=== PATIENT | male | born 1995 | race Two or more races ===

== ENCOUNTER 2022-05-11 02:49 | Emergency (ER) | payer SELFPAY ==
[~2022-05-11] VITALS: Ht 188 cm; Wt 131.8 kg
[2022-05-11] MEDS ORDERED: IBUPROFEN 600 MG TABLET PO ONE (03:15)
[2022-05-11 03:22] LABS: BASOPHILS % (AUTO) 0.2 % (0.0-2.0); EOSINOPHILS % (AUTO) 2.7 % (1.0-6.0); HEMATOCRIT 41.6 % (41-53); HEMOGLOBIN 14.5 g/dL (13.5-17.5); LYMPHOCYTES # (AUTO) 3.2 K/uL (1.0-4.8); LYMPHOCYTES % (AUTO) 35.1 % (22.0-44.0); MEAN CORPUSCULAR HGB CONC 34.9 G/dL (31.0-37.0); MEAN CORPUSCULAR VOLUME 86 fL (80-100); MONOCYTES # (AUTO) 0.7 K/uL (0.1-1.0); MONOCYTES % (AUTO) 7.2 % (2.0-9.0); NEUTROPHILS % (AUTO) 54.8 % (40.0-70.0); PLATELET COUNT (AUTO) 312 K/uL (150-450); RED BLOOD CELL COUNT(AUTO) 4.84 MIL/uL (4.50-5.90); RED CELL DISTRIBUTION WIDTH 13.4 % (11.5-14.5)
[2022-05-11 03:32] LABS: ANION GAP 9 mmol/L (8-16); CARBON DIOXIDE 28 mmol/L (22-29); CHLORIDE 103 mmol/L (98-107); CREATININE 0.81 mg/dL (0.60-1.30); GLUCOSE,RANDOM 104 mg/dL (70-110); POTASSIUM 4.2 mmol/L (3.5-5.1); SODIUM SERUM 140 mmol/L (136-145); UREA NITROGEN, BLOOD 13 mg/dL (7-18)
[2022-05-11 03:36] LABS: CALCIUM, TOTAL 9.4 mg/dL (8.8-10.5)
[2022-05-11 03:39] LABS: GLOMERULAR FILTR. RATE CALC > 60 mL/min (>60)
[2022-05-11 04:15] VITALS: BP 137/83
== END 2022-05-11 04:52 | disposition home or self-care (01) ==
LOC: EMS 02:51
DX: R07.89 Other chest pain (principal)
CPT/HCPCS: 71045; 80048; 84484; 85025; 93005; 99285; 36415-L1; 36415-TC

== ENCOUNTER 2023-01-18 09:55 | Emergency (ER) | payer MEDICAID ==
[~2023-01-18] VITALS: Ht 182.9 cm; Wt 122.7 kg
[2023-01-18] MEDS ORDERED: IBUP-1506 PO (10:08)
[2023-01-18] MEDS ORDERED: MethylPREDNISolone SOD SUCC 125 MG/2 ML VIAL IM ONE (12:15)
[2023-01-18] MEDS ORDERED: COLC0.6T68 PO (12:39)
[2023-01-18 12:51] VITALS: BP 137/84
== END 2023-01-18 12:51 | disposition home or self-care (01) ==
LOC: EMS 09:55
DX: M10.9 Gout, unspecified (principal)
CPT/HCPCS: 99283; 96372; J2930

== ENCOUNTER 2023-03-12 06:40 | Emergency (ER) | payer MEDICAID ==
[~2023-03-12] VITALS: Ht 185.4 cm; Wt 127.3 kg
[~2023-03-12 06:40] MED LIST: COLC0.6T68 PO; IBUP-1506 PO
[2023-03-12] MEDS ORDERED: KETOROLAC TROMETHAMINE 60 MG/2 ML VIAL IM ONE (07:15)
[2023-03-12] MEDS ORDERED: DEXAMETHASONE SOD PHOS 4 MG/ML VIAL IM ONE (07:15)
[2023-03-12] MEDS ORDERED: COLCHICINE 0.6 MG TABLET PO ONE (07:15)
[2023-03-12] MEDS ORDERED: IBUP-1554 PO (07:28)
[2023-03-12] MEDS ORDERED: COLC0.6T73 PO (07:28)
[2023-03-12] MEDS ORDERED: CEPH-558 PO (07:28)
[2023-03-12 07:45] VITALS: BP 145/87
== END 2023-03-12 07:55 | disposition home or self-care (01) ==
LOC: EMS 06:42
DX: M10.9 Gout, unspecified (principal)
CPT/HCPCS: 99284; 96372; J1100; J1885

== ENCOUNTER 2023-05-10 22:02 | Emergency (ER) | payer MEDICAID ==
[~2023-05-10] VITALS: Ht 182.9 cm; Wt 122.7 kg
[~2023-05-10 22:02] MED LIST changes: +CEPH-558 PO; -COLC0.6T68 PO; +COLC0.6T73 PO; -IBUP-1506 PO; +IBUP-1554 PO
[2023-05-10 22:15] VITALS: BP 152/94; PULSE 81; RESP 16; TEMP 98.1
[2023-05-11] MEDS ORDERED: COLCHICINE 0.6 MG TABLET PO ONE (00:30)
[2023-05-11] MEDS ORDERED: IBUPROFEN 600 MG TABLET PO ONE (00:30)
[2023-05-11] MEDS ORDERED: DEXAMETHASONE SOD PHOS 4 MG/ML 5 ML VIAL IM ONE (00:30)
[2023-05-11] MEDS ORDERED: IBUP-1554 PO (02:23)
== END 2023-05-11 02:42 | disposition home or self-care (01) ==
LOC: EMS 22:02
DX: M10.071 Idiopathic gout, right ankle and foot (principal); M19.90 Unspecified osteoarthritis, unspecified site
CPT/HCPCS: 99283; 96372; J1100

== ENCOUNTER 2024-04-19 23:43 | Emergency (ER) | payer SELFPAY ==
[~2024-04-19] VITALS: Ht 182.9 cm; Wt 131.4 kg
[~2024-04-19 23:43] MED LIST changes: -CEPH-558 PO; -COLC0.6T73 PO
[2024-04-19 23:45] VITALS: BP 146/84; PULSE 78; RESP 16; TEMP 98.3
[2024-04-20] MEDS ORDERED: ALLO100T50 PO (00:55)
[2024-04-20] MEDS ORDERED: COLC-3 PO (00:55)
[2024-04-20] MEDS ORDERED: INDO50CA97 PO (00:55)
[2024-04-20] MEDS: DEXAMETHASONE SOD PHOS 4 MG/ML 5 ML VIAL IM ONE (01:38)
[2024-04-20] MEDS: KETOROLAC TROMETHAMINE 30 MG/ML VIAL IM ONE (01:38)
== END 2024-04-20 02:09 | disposition home or self-care (01) ==
LOC: EMS 23:44
DX: M10.9 Gout, unspecified (principal)
CPT/HCPCS: 99284; 96372; J1100; J1885

== ENCOUNTER 2024-07-23 04:36 | Emergency (ER) | payer SELFPAY ==
[~2024-07-23] VITALS: Ht 182.9 cm; Wt 85.9 kg
[~2024-07-23 04:36] MED LIST changes: +ALLO100T50 PO; +COLC-3 PO; +INDO50CA97 PO
[2024-07-23 04:47] VITALS: BP 131/83; PULSE 67; RESP 20; TEMP 97.9; O2SAT 99
[2024-07-23] MEDS: KETOROLAC TROMETHAMINE 60 MG/2 ML VIAL IM ONE (06:10)
[2024-07-23] MEDS: DEXAMETHASONE SOD PHOS 4 MG/ML VIAL IM ONE (06:10)
[2024-07-23] MEDS: HYDROCODONE/ACETAMINOPHEN 5-325 MG TABLET PO ONE (06:10)
[2024-07-23] MEDS: COLCHICINE 0.6 MG TABLET PO ONE (06:10)
[2024-07-23] MEDS ORDERED: COLC-3 PO (07:09)
== END 2024-07-23 07:23 | disposition home or self-care (01) ==
LOC: EMS 04:37
DX: M10.9 Gout, unspecified (principal)
CPT/HCPCS: 99284; 96372; J1100; J1885

== ENCOUNTER 2025-09-22 06:56 | Emergency (ER) | payer MEDICAID ==
[~2025-09-22] VITALS: Ht 182.9 cm; Wt 131.8 kg
[2025-09-22 06:59] VITALS: TEMP 98.6
[2025-09-22 07:58] LABS: PLATELET COUNT (AUTO) 326 K/uL (150-450); RED BLOOD CELL COUNT(AUTO) 5.50 MIL/uL (4.50-5.90); RED CELL DISTRIBUTION WIDTH 13.8 % (11.5-14.5); WHITE BLOOD COUNT (AUTO) 9.5 K/uL (4.5-11.0)
[2025-09-22 08:00] LABS: CALCIUM, TOTAL 9.6 mg/dL (8.8-10.5); CREATININE 0.68 mg/dL (0.60-1.30); GLOMERULAR FILTR. RATE CALC > 60 mL/min (>60); GLUCOSE,RANDOM 110 mg/dL (70-110); SODIUM SERUM 138 mmol/L (136-145); UREA NITROGEN, BLOOD 12 mg/dL (7-18)
[2025-09-22] MEDS: OxyCODONE HCL/ACETAMINOPHEN 5-325 MG TABLET PO ONE (08:16)
[2025-09-22] MEDS: KETOROLAC TROMETHAMINE 30 MG/ML VIAL IVP ONE (08:16)
[2025-09-22] MEDS ORDERED: PERCT PO (08:39)
[2025-09-22] MEDS ORDERED: INDO50CA97 PO (08:39)
[2025-09-22] MEDS ORDERED: COLC-3 PO (08:39)
[2025-09-22 09:41] VITALS: BP 144/74; PULSE 63; RESP 17; O2SAT 97
== END 2025-09-22 09:58 | disposition home or self-care (01) ==
LOC: EMS 06:56
DX: M10.071 Idiopathic gout, right ankle and foot (principal); M19.90 Unspecified osteoarthritis, unspecified site; Z79.899 Other long term (current) drug therapy
CPT/HCPCS: 99284; 96374; 80048; 84550; 85025; 36415; 73630; J1885